=== PATIENT | male | born 1960 | race Caucasian/White ===

== ENCOUNTER 2016-12-22 04:13 | Emergency (ER) | payer OTHER ==
--- NOTE | ~2016-12-22 | EKG ---
PATIENT: CLAUDIO MEDINA UNIT #: [id number] Ventricular Rate: 68 BPM Atrial Rate: 68 BPM P-R Interval: 198 ms QRS Duration: 158 ms Q-T Interval: 468 ms QTC Calculation(Bezet): 497 ms P [place]: 74 degrees Calculated R [place]: -2 degrees Calculated T [place]: 14 degrees Diagnosis Line: Normal sinus rhythm Diagnosis Line: Left bundle branch block Diagnosis Line: Abnormal ECG Diagnosis Line: No previous ECGs available Diagnosis Line: Confirmed by FRANCES CUMMINGS MD ([id number]) on 12/23/2016 Diagnosis Line: 6:26:41 PM INTERPRETING MD: EMILIANO MOORE
--- NOTE | ~2016-12-22 | CR72 ---
[facility] A Service of [facility] & [facility] RADIOLOGY TEXT RESULTS PATIENT: CLAUDIO MEDINA LOCATION: [employer] : 58 UNIT #: [id number] AGE: [address]: Yariel Daley MD SEX: M ORDER DR: [id number] [facility] [address] [place], [place] [address] [id number] E MR#: [id number] Acc #: [id number] NAME: CLAUDIO MEDINA : 1960 SEX: M STUDY DATE/TIME: 12/22/2016 5:32 UNIT: [facility] [facility] ROOM: STUDY DESCRIPTION: CR Chest Single View Portable Attending Physician: Yariel Daley M.D. Ordering Physician: Cuca Woods M.D. Primary Care Physician: Daksha Pablo M.D. MEDICAL IMAGING REPORT This report is preliminary unless electronic signature is present EXAM Chest x-ray, 12/22/2016 HISTORY 56-year-old male in the ED complaining of chest pain and reflux symptoms beginning earlier this morning. TECHNIQUE AP portable chest x-ray FINDINGS Heart size and pulmonary vascularity are normal. The lungs are expanded and clear. No visible pulmonary infiltrate or pleural effusion. No change since 07/28/2016. IMPRESSION Negative chest. No change since 07/28/2016. Dictated by... Pato Valdez M.D. THIS IS AN ELECTRONICALLY VERIFIED REPORT Pato Valdez M.D. at 12/22/2016 9:58 PM John Paul TD: 12/22/2016 08:03 JOB #: [id number] MEDICAL IMAGING REPORT Page 1 of 1 COPY
[~2016-12-22 04:13] MED LIST: FLEXERIL PO; MEDROL PO; TYLOX 5/500 CAP1 CAP PO
[2016-12-22 05:14] LABS: BASOPHIL# 0.1 X10e3 (0-0.3); BASOPHIL% 0.9 % (0-2.5); EOSINOPHIL# 0.3 X10e3 (0-0.7); HEMOGLOBIN 12.7 gm/dL (13.0-16.0); LYMPHOCYTE# 2.3 X10e3 (1.0-3.5); LYMPHOCYTE% 34.5 % (17.0-45.0); MEAN CELL VOLUME 95.7 FL (83-96); MEAN CORPUSCULAR HEMOGLOBIN 31.2 PG (28-34); MEAN CORPUSCULAR HGB CONC 32.6 g/dL (30-36); MEAN PLATELET VOLUME 7.7 FL (6.5-11.5); MONOCYTE# 0.7 X10e3 (0-1.0); MONOCYTE% 9.6 % (3.0-12.0); NEUTROPHIL# 3.5 X10e3 (1.5-7.1); PLATELET COUNT 225 X10e3 (140-420); RED BLOOD COUNT 4.08 X10e (3.90-5.60); RED CELL DISTRIBUTION WIDTH 13.8 % (11.0-15.5); WHITE BLOOD COUNT 6.8 X10e3 (4.0-10.5)
[2016-12-22 05:16] LABS: DIFF IND NO
[2016-12-22 05:34] LABS: POC - TROPONIN <0.05 ng/mL (<=0.05)
[2016-12-22 05:47] LABS: BILIRUBIN, DIRECT 0.1 mg/dL (0.0-0.2); BILIRUBIN,INDIRECT 0.6 mg/dL (0.0-0.9); BILIRUBIN,TOTAL 0.7 mg/dL (0.2-2.0); CALCIUM SERUM 9.1 mg/dL (8.4-10.2); CREATININE SERUM 0.8 mg/dL (0.6-1.4); GLOM FILT RATE Estimated 99.2 mL/min (>60); POTASSIUM 3.7 mmol/L (3.5-5.1); PROTEIN TOTAL SERUM 6.9 g/dL (6.0-8.3)
[2016-12-22 06:53] LABS: POC - CKMB <1.0 ng/mL (0.0-7.9); POC - TROPONIN <0.05 ng/mL (<=0.05)
[2017-03-04] MEDS ORDERED: OMEPRAZOLE20 M2 (14:18)
== END 2016-12-22 08:22 | disposition home or self-care (01) ==
LOC: CED 04:13
PROVIDERS: Emergency Medicine
DX: R10.13 Epigastric pain (principal); K21.9 Gastro-esophageal reflux disease without esophagitis; F17.210 Nicotine dependence, cigarettes, uncomplicated; Z79.899 Other long term (current) drug therapy
CPT/HCPCS: 36415; 71010; 80048; 80076; 82553; 83690; 84484; 85025; 93005; 96374; 96375; 99284; C9113; J2270

== ENCOUNTER 2016-12-26 15:18 | Emergency (ER) | payer OTHER ==
--- NOTE | ~2016-12-26 | CR282 ---
[facility] A Service of [facility] RADIOLOGY TEXT RESULTS PATIENT: CLAUDIO MEDINA LOCATION: [place] : 58 UNIT #: [id number] AGE: [address]: Talia Gates SEX: M ORDER DR: [id number] [address] [address] [id number] E MR#: [id number] Acc #: [id number] NAME: CLAUDIO MEDINA : 1960 SEX: M STUDY DATE/TIME: 12/26/2016 17:27 UNIT: [id number] ROOM: STUDY DESCRIPTION: CR Wrist Min 3 View Rt Attending Physician: Talia Gates Pa-C Ordering Physician: Talia Gates Pa-C Primary Care Physician: Daksha Pablo M.D. MEDICAL IMAGING REPORT This report is preliminary unless electronic signature is present EXAM Right wrist series dated 12/26/2016. COMPARISON None. HISTORY Bilateral wrist pain for 2 months. FINDINGS Three views of the right wrist were obtained. Wrist evaluation in multiple projections shows normal mineralization of the bony structures about the wrist and satisfactory articular relationship of the radius and ulna to the proximal carpal row and of the distal carpal segments to the metacarpal bases. There is no indication of fracture or dislocation, and no soft tissue radiopaque foreign body is present. No congenital defects are apparent. IMPRESSION Normal wrist. Dictated by... Rowena Bocanegra M.D. THIS IS AN ELECTRONICALLY VERIFIED REPORT Rowena Bocanegra M.D. at 12/27/2016 5:12 PM CPR/ea TD: 12/27/2016 00:01 JOB #: [id number] [facility] A Service [facility] RADIOLOGY TEXT RESULTS PATIENT: CLAUDIO MEDINA LOCATION: [facility] : 58 UNIT #: [id number] AGE: [address]: Talia Gates SEX: M ORDER DR: MEDICAL IMAGING REPORT Page 1 of 1 COPY
--- NOTE | ~2016-12-26 | CR281 ---
[facility] A Service of [facility] & [facility] RADIOLOGY TEXT RESULTS PATIENT: CLAUDIO MEDINA LOCATION: [facility] : 58 UNIT #: [id number] AGE: [address]: Talia aGtes SEX: M ORDER DR: [id number] [facility] [address]. [place], [place] [address] [id number] E MR#: [id number] Acc #: [id number] NAME: CLAUDIO MEDINA : 1960 SEX: M STUDY DATE/TIME: 12/26/2016 17:28 UNIT: [facility] ROOM: STUDY DESCRIPTION: CR Wrist Min 3 View Lt Attending Physician: Talia Gates Pa-C Ordering Physician: Talia Gates Pa-C Primary Care Physician: Daksha Pablo M.D. MEDICAL IMAGING REPORT This report is preliminary unless electronic signature is present EXAM Left wrist series dated 12/26/2016. COMPARISON No prior left wrist series. Right wrist series dated 12/26/2016. HISTORY Bilateral wrist pain for 2 months. FINDINGS Three views of the left wrist were obtained. Osteoarthritic sclerotic bony changes are noted in the first carpal-metacarpal joint. No bony erosions. Bony mass is seen in the visualized wrist bones. Radiocarpal and distal radioulnar joints are intact. Intercarpal joints are within normal limits too. Surrounding soft tissues do not demonstrate any significant abnormality. IMPRESSION Osteoarthritic changes are noted in the first carpal-metacarpal joint. Dictated by... Rowena Bocanegra M.D. THIS IS AN ELECTRONICALLY VERIFIED REPORT Rowena Bocanegra M.D. at 12/27/2016 5:12 PM CPR/marybeth TD: 12/27/2016 00:03 JOB #: [id number] MEDICAL IMAGING REPORT Page 1 of 1 COPY
[2017-03-04] MEDS ORDERED: OMEPRAZOLE20 M2 (14:18)
== END 2016-12-26 18:48 | disposition home or self-care (01) ==
LOC: CFTX 15:18 → CED 15:18 → CFTX 16:55
DX: M13.832 Other specified arthritis, left wrist (principal); M13.831 Other specified arthritis, right wrist; F17.210 Nicotine dependence, cigarettes, uncomplicated
CPT/HCPCS: 73110; 99283

== ENCOUNTER 2017-01-05 20:13 | Emergency (ER) | payer OTHER ==
[2017-01-05 21:17] LABS: BASOPHIL# 0.1 X10e3 (0-0.3); EOSINOPHIL# 0.4 X10e3 (0-0.7); EOSINOPHIL% 6.3 % (0.0-7.0); HEMATOCRIT 39.2 % (38.0-50.0); HEMOGLOBIN 13.1 gm/dL (13.0-16.0); LYMPHOCYTE# 2.8 X10e3 (1.0-3.5); LYMPHOCYTE% 45.3 % (17.0-45.0); MEAN CELL VOLUME 94.3 FL (83-96); MEAN CORPUSCULAR HEMOGLOBIN 31.6 PG (28-34); MEAN CORPUSCULAR HGB CONC 33.5 g/dL (30-36); MEAN PLATELET VOLUME 7.5 FL (6.5-11.5); MONOCYTE# 0.7 X10e3 (0-1.0); MONOCYTE% 11.2 % (3.0-12.0); NEUTROPHIL# 2.2 X10e3 (1.5-7.1); NEUTROPHIL% 36.2 % (40-75); PLATELET COUNT 238 X10e3 (140-420); RED BLOOD COUNT 4.16 X10e (3.90-5.60); WHITE BLOOD COUNT 6.2 X10e3 (4.0-10.5)
[2017-01-05 21:19] LABS: DIFF IND NO
[2017-01-05 21:42] LABS: ALBUMIN SERUM 4.2 g/dL (3.5-5.0); BILIRUBIN, DIRECT 0.1 mg/dL (0.0-0.2); BILIRUBIN,INDIRECT 0.5 mg/dL (0.0-0.9); BILIRUBIN,TOTAL 0.6 mg/dL (0.2-2.0); CALCIUM SERUM 9.1 mg/dL (8.4-10.2); CREATININE SERUM 0.8 mg/dL (0.6-1.4); GLOM FILT RATE Estimated 99.2 mL/min (>60); POTASSIUM 4.2 mmol/L (3.5-5.1); PROTEIN TOTAL SERUM 7.1 g/dL (6.0-8.3)
[2017-01-06] MEDS ORDERED: NO MEDICATIONS (09:42)
[2017-03-04] MEDS ORDERED: OMEPRAZOLE20 M2 (14:18)
== END 2017-01-05 21:30 | disposition left against medical advice (07) ==
LOC: CED 20:13
PROVIDERS: Emergency Medicine
DX: Z53.21 Procedure and treatment not carried out due to patient leaving prior to being seen by health care provider (principal)
CPT/HCPCS: 80048; 80076; 82150; 83690; 85025

== ENCOUNTER 2017-01-06 04:56 | Emergency (ER) | payer OTHER ==
[2017-01-06 08:04] LABS: BASOPHIL# 0.1 X10e3 (0-0.3); BASOPHIL% 1.2 % (0-2.5); EOSINOPHIL# 0.4 X10e3 (0-0.7); EOSINOPHIL% 6.5 % (0.0-7.0); HEMATOCRIT 39.9 % (38.0-50.0); HEMOGLOBIN 13.2 gm/dL (13.0-16.0); LYMPHOCYTE# 2.7 X10e3 (1.0-3.5); LYMPHOCYTE% 41.2 % (17.0-45.0); MEAN CELL VOLUME 95.4 FL (83-96); MEAN CORPUSCULAR HEMOGLOBIN 31.5 PG (28-34); MEAN PLATELET VOLUME 7.8 FL (6.5-11.5); MONOCYTE# 0.7 X10e3 (0-1.0); MONOCYTE% 11.2 % (3.0-12.0); NEUTROPHIL# 2.6 X10e3 (1.5-7.1); NEUTROPHIL% 39.9 % (40-75); PLATELET COUNT 240 X10e3 (140-420); RED BLOOD COUNT 4.18 X10e (3.90-5.60); RED CELL DISTRIBUTION WIDTH 13.9 % (11.0-15.5); WHITE BLOOD COUNT 6.6 X10e3 (4.0-10.5)
[2017-01-06 08:06] LABS: DIFF IND NO
[2017-01-06 08:31] LABS: ALBUMIN SERUM 3.8 g/dL (3.5-5.0); ALKALINE PHOSPHATASE 46 U/L (32-92); ALT (SGPT) 21 U/L (10-40); AST (SGOT) 18 U/L (10-42); BILIRUBIN,TOTAL 0.2 mg/dL (0.2-2.0); BLOOD UREA NITROGEN 13 mg/dL (9-23); BUN/CREATININE RATIO 18.57; CARBON DIOXIDE 27 mmol/L (22-31); CHLORIDE 106 mmol/L (100-111); CREATININE SERUM 0.7 mg/dL (0.6-1.4); GLOM FILT RATE Estimated 104.8 mL/min (>60); GLUCOSE FASTING 100 mg/dL (70-110); LIPASE 22 U/L (22-51); POTASSIUM 4.2 mmol/L (3.5-5.1); PROTEIN TOTAL SERUM 6.6 g/dL (6.0-8.3); SODIUM 136 mmol/L (135-145)
[2017-01-06 08:38] LABS: BILIRUBIN, DIRECT <0.1 mg/dL (0.0-0.2); BILIRUBIN,INDIRECT 0.1 mg/dL (0.0-0.9)
[2017-01-06 09:20] LABS: URINE SOURCE CLEAN CATCH
[2017-01-06 09:38] LABS: CULTURE INDICATED? NO; U HYALINE CASTS AUWI 0-2 /[LPF]; URBCS1 AUWI 0-2 /[HPF] (0-2); URINE APPEARANCE CLEAR; URINE BACTERIA AUWI NEG (NEGATIVE); URINE BILIRUBIN NEG (NEG); URINE BLOOD TRACE (NEG); URINE COLOR YELLOW; URINE GLUCOSE NEG (NEG); URINE KETONE NEG (NEG); URINE LEUKOCYTE ESTERASE TRACE (NEG); URINE NITRATE NEG (NEG); URINE PH 6.5 (5-8); URINE PROTEIN NEG (NEG); URINE SPECIFIC GRAVITY 1.018 (1.003-1.035); URINE SQUAMOUS EPITHELIAL CELL NONE SEEN /[HPF]; URINE UROBILINOGEN 0.2 MG/DL (NEG); UWBCS1 AUWI 0-2 (0-5)
[2017-01-06] MEDS ORDERED: NO MEDICATIONS (09:42)
[2017-03-04] MEDS ORDERED: OMEPRAZOLE20 M2 (14:18)
== END 2017-01-06 12:04 | disposition home or self-care (01) ==
LOC: CED 04:56
PROVIDERS: Emergency Medicine
DX: R10.12 Left upper quadrant pain (principal); R10.11 Right upper quadrant pain; R19.7 Diarrhea, unspecified; F17.200 Nicotine dependence, unspecified, uncomplicated
CPT/HCPCS: 36415; 80048; 80076; 81003; 83690; 85025; 99284

== ENCOUNTER → 2017-03-04 | Day surgery (SDC) | payer OTHER ==
[~2017-03-04] MED LIST changes: +NO MEDICATIONS; +OMEPRAZOLE20 M2
--- NOTE | ~2017-03-04 | OR ---
Unit #: [id number] #: [id number] Patient: CLAUDIO MEDINA [id number] [address] [address] [id number] O MR#: [id number] NAME: CLAUDIO MEDINA ROOM: Date of Procedure: 03/04/2017 Admission Date: 03/04/2017 Surgeon: Tommie Franco M.D. : 1960 Attending Physician: Tommie Franco M.D. Primary Care Physician: Daksha Pablo M.D. OPERATIVE REPORT PRIMARY CARE PHYSICIAN Daksha Pablo M.D. PREOPERATIVE DIAGNOSES Chronic diarrhea. In addition, the patient has epigastric pain and dyspepsia. PROCEDURES PERFORMED Upper gastrointestinal endoscopy and biopsy as well as colonoscopy with biopsies. POSTOPERATIVE DIAGNOSES For upper endoscopy: The patient had moderate prepyloric antral erosive gastritis. Otherwise, examination was normal up to third part of duodenum. A biopsy was obtained from the antrum for CLOtest. For colonoscopy: The patient has small internal hemorrhoids. Otherwise, examination was normal up to cecum and terminal ileum. The quality of the prep was good. Multiple random colonic biopsies were obtained from throughout the colon to rule out microscopic or collagenous colitis. RECOMMENDATIONS 1. Omeprazole 20 mg p.o. daily. 2. P.r.n. Lomotil 2.5 mg p.o. 3. Follow up in the office in 3 months' time. SEDATION USED MAC. DESCRIPTION OF PROCEDURE Following detailed explanation of potential risks and complications of an upper endoscopy and a colonoscopy, namely perforation, bleeding, and complications related to sedation, the patient was brought to GI lab and laid in the left lateral decubitus position. Lubricated tip of the Olympus video upper endoscope was passed through the bite block into the proximal esophagus under direct vision. The entire esophageal mucosa was examined and appeared normal. Z-line was nicely demarcated, there being no esophagitis or hiatus hernia. The scope was then advanced into the gastric cavity and the latter was insufflated. Mucosa of the fundus, body, and antrum was examined and moderate prepyloric antral erythema was noted indicating antral gastritis. Pylorus was intubated with visualization of the normal duodenal bulb and second and third part of the Unit #: [id number] #: [id number] Patient: MEDINA,CLAUDIO duodenum. Upon withdrawal and retroflexion; incisura, cardia, and greater curve was examined and biopsy was obtained from the antrum for CLOtest. The scope was then withdrawn in the distal esophagus. The entire esophageal mucosa was examined all the way up to pharynx, no additional findings were noted. The examination table was then turned by 180 degrees and the patient positioned for a colonoscopy. A digital rectal examination was performed, which was normal. Lubricated tip of Olympus video colonoscope was inserted through the anus and advanced under direct vision. The scope was advanced past rectosigmoid into descending colon. No diverticula were noted in this area. The scope tip was then navigated all the way up to cecum with visualization of the ileocecal valve and the appendiceal orifice. Preparation was good with good visualization and photodocumentation was obtained. Last few inches of the terminal ileum were also visualized after intubation of the ileocecal valve and appeared normal. Successive segments of the colonic mucosa were examined upon withdrawal. It unremarkable, there being no polyps, mass lesions, AVMs, or diverticula. Small internal hemorrhoids were noted at the anal verge seen on retroflexion and on antegrade examination. The scope was then withdrawn. Multiple random colonic biopsies were also obtained from throughout the colon to rule out microscopic or collagenous colitis. The patient tolerated the procedure without any postprocedure complications. Dictated by... Chrissy Butler/stephanie TD: 03/04/2017 15:48 JOB #: [id number] CC: Daksha Pablo M.D. OPERATIVE REPORT Page 1 of 1 X Tommie Franco MD X PROCEDURE OPERATIVE NOTE
== END | disposition home or self-care (01) ==
LOC: COPS 11:13
DX: K52.9 Noninfective gastroenteritis and colitis, unspecified (principal); K29.00 Acute gastritis without bleeding; K64.8 Other hemorrhoids; F17.210 Nicotine dependence, cigarettes, uncomplicated
CPT/HCPCS: 87077; 88305; J2250